=== PATIENT | female | born 1950 | race Caucasian/White ===

== ENCOUNTER 2017-09-30 21:52 | Emergency (ER) | payer OTHER ==
[~2017-09-30] VITALS: Ht 160 cm; Wt 98.0 kg
[2017-09-30 22:00] VITALS: BP 130/78
== END 2017-09-30 23:00 | disposition left against medical advice (07) ==
LOC: ER 21:52
DX: R10.12 Left upper quadrant pain (principal); Z53.21 Procedure and treatment not carried out due to patient leaving prior to being seen by health care provider

== ENCOUNTER → 2024-01-12 | Emergency (ER) | payer OTHER ==
[~2024-01-12] VITALS: Ht 157.5 cm; Wt 91.7 kg
[2024-01-12 06:57] VITALS: BP 156/86; PULSE 86; RESP 18; O2SAT 94
== END | disposition left against medical advice (07) ==
LOC: ER 06:48
DX: R05.9 Cough, unspecified (principal); Z53.21 Procedure and treatment not carried out due to patient leaving prior to being seen by health care provider